=== PATIENT | female | born 1960 | race Asian ===

== ENCOUNTER 2023-10-05 19:06 | Observation (INO) | payer BC, MEDICAID ==
[2023-10-05 20:10] LABS: BASOPHILS % (AUTO) 0.2 %; HCT - HEMATOCRIT 42.9 % (37.0-47.0); HGB - HEMOGLOBIN 14.2 g/dL (12.0-16.0); LYMPHOCYTES # (AUTO) 0.7 10^3/uL (1.5-3.5); LYMPHOCYTES % (AUTO) 6.4 %; MEAN CORPUSCULAR HEMOGLOBIN 26.5 pg (27.0-31.0); MEAN CORPUSCULAR HGB CONC 33.1 g/dL (32.0-36.0); MEAN CORPUSCULAR VOLUME 80.2 fL (81.0-99.0); MEAN PLATELET VOLUME 9.4 fL (7.9-10.8); MONOCYTES # (AUTO) 0.2 10^3/uL (0.0-1.0); MONOCYTES % (AUTO) 1.7 %; NEUTROPHILS # (AUTO) 10.1 10^3/uL (1.5-6.6); NEUTROPHILS % (AUTO) 91.4 %; PLT - PLATELET COUNT 392 10^3/uL (130-450); RED BLOOD COUNT 5.35 10^6/uL (4.20-5.40); RED CELL DISTRIBUTION WIDTH 12.5 % (12.0-15.0); WHITE BLOOD COUNT 11.1 x10^3/uL (4.8-10.8)
[2023-10-05 20:15] LABS: ALBUMIN/GLOBULIN RATIO 1.5 (1.0-2.2); BILIRUBIN,TOTAL 0.7 mg/dL (0.2-1.0); CALCIUM 10.4 mg/dL (8.5-10.3); CREATININE 0.6 mg/dL (0.6-1.3); POTASSIUM 3.9 mmol/L (3.5-4.5); TOTAL PROTEIN 8.4 g/dL (6.4-8.9)
[2023-10-05 20:29] LABS: BILIRUBIN,URINE NEGATIVE (NEGATIVE); GLUCOSE, URINE (UA) 500 mg/dL (NEGATIVE); KETONES,URINE (UA) >=80 mg/dL (NEGATIVE); LEUKOCYTE ESTERASE, URINE TRACE (NEGATIVE); NITRITE,URINE NEGATIVE (NEGATIVE); OCCULT BLOOD,URINE NEGATIVE (NEGATIVE); PH,URINE 5.5 PH (5.0-7.5); PROTEIN,URINE NEGATIVE (NEGATIVE); UROBILINOGEN,URINE 0.2 (NORMAL) E.U./dL (NORMAL)
--- NOTE | 2023-10-05 20:29 | ED Physician Documentation ---
PD HPI ABD PAIN - Stated complaint Stated Complaint: N/V/ABD PX - Chief complaint Chief Complaint: Abd Pain - History obtained from History obtained from: Patient, Family - History of Present Illness Timing - details: Constant Pain level max: 8 Pain level now: 8 Quality: Aching, Pain Location: Epigastric, LUQ Radiation: Left flank, Right flank Improved by: Other (nothing) Worsened by: Eating Associated symptoms: No: Nausea, Vomiting, Hematemesis, Diarrhea, Constipation, Melena, Hematochezia, Dysuria, Hematuria, Chest pain, Dizzy, Near syncope / syncope, Loss of appetite Recently seen: Not recently seen - Additional information Additional information: 62-year-old female with epigastric abdominal pain that started around 8 AM this morning after eating a sweet potato and drinking coffee. She states that the pain has been constant throughout the day." Radiates to the bilateral flank. Feels like a crampy and stabbing pain. No vomiting. No diarrhea or constipation. No blood in the stool. No urinary symptoms. Denies any medications at home. States that she has a remote history of tuberculosis in 2011 when she was in the [facility]. Review of Systems Constitutional: denies: Fever, Chills Respiratory: denies: Cough GI: denies: Vomiting, Diarrhea Skin: denies: Rash Musculoskeletal: denies: Neck pain, Back pain Neurologic: denies: Headache PD PAST MEDICAL HISTORY - Past Medical History Past Medical History: No - Present Medications Home Medications: Ambulatory Orders Medication Instructions Recorded Confirmed No Known Home Medications 10/05/23 10/05/23 - Allergies Allergies/Adverse Reactions: Allergies Allergy/AdvReac Type Severity Reaction Status Date / Time No Known Drug Allergies Allergy Verified 10/05/23 19:25 - Living Situation Living Situation: reports: With family Living Arrangement: reports: At home - Social History Does the pt have substance abuse?: No PD ED PE NORMAL - Vitals Vital signs reviewed: Yes - General General: Alert and oriented X 3, No acute distress - HEENT HEENT: PERRL, Moist mucous membranes - Neck Neck: Supple, no meningeal sign - Cardiac Cardiac: RRR, Strong equal pulses - Respiratory Respiratory: No respiratory distress, Clear bilaterally - Abdomen Abdomen: Soft, Non distended, Other (Tender palpation right upper quadrant. Positive Cobb sign) - Back Back: No CVA TTP, No spinal TTP - Derm Derm: Warm and dry - Extremities Extremities: No edema - Neuro Neuro: Alert and oriented X 3 - Psych Psych: Normal mood, Normal affect Results - Vitals Vitals: Vital Signs - 24 hr 10/05/23 10/05/23 10/05/23 19:19 20:30 21:30 Temperature 36.5 C Heart Rate 73 Respiratory 16 Rate Blood Pressure 158/74 H 167/88 H 173/93 H O2 Saturation 100 99 100 10/05/23 23:00 Temperature 36.5 C Heart Rate 74 Respiratory 18 Rate Blood Pressure 166/74 H O2 Saturation 99 Oxygen O2 Source Room air - Labs Labs: Laboratory Tests 10/05/23 10/05/23 10/05/23 19:26 19:51 19:51 WBC 11.1 H RBC 5.35 Hgb 14.2 Hct 42.9 MCV 80.2 L MCH 26.5 L MCHC 33.1 RDW 12.5 Plt Count 392 MPV 9.4 Neut # (Auto) 10.1 H Lymph # (Auto) 0.7 L Lares # (Auto) 0.2 Eos # (Auto) 0.0 Baso # (Auto) 0.0 Absolute Nucleated RBC 0.00 Nucleated RBC % 0.0 Sodium 133 L Potassium 3.9 Chloride 97 L Carbon Dioxide 26 Anion Gap 10.0 BUN 10 Creatinine 0.6 Estimated GFR (MDRD) 101 Glucose 295 H Calcium 10.4 H Total Bilirubin 0.7 AST 17 ALT 21 Alkaline Phosphatase 94 Total Protein 8.4 Albumin 5.0 Globulin 3.4 Albumin/Globulin Ratio 1.5 Lipase 21 Urine Color YELLOW Urine Clarity HAZY Urine pH 5.5 Ur Specific [place] 1.025 Urine Protein NEGATIVE Urine Glucose (UA) 500 H Urine Ketones >=80 H Urine Occult Blood NEGATIVE Urine Nitrite NEGATIVE Urine Bilirubin NEGATIVE Urine Urobilinogen 0.2 (NORMAL) Ur Leukocyte Esterase TRACE H Urine RBC 0-5 Urine WBC 6-10 H Ur Squamous Epith Cells FEW Squamous Urine Bacteria Moderate H Ur Microscopic Review INDICATED Urine Culture Comments INDICATED - Rads (name of study) CT abdomen pelvis Relevant Findings:: Final report received, See rad report Right upper quadrant ultrasound Relevant Findings:: Final report received, See rad report PD Medical Decision Making - ED course Complexity details: reviewed results, re-evaluated patient, considered differential, d/w patient, d/w small business consultant ED course: 62-year-old female with what appears to be a very large stone lodged in her gallbladder neck. Appears to have a hydropic gallbladder. Thickened gallbladder wall but no pericholecystic fluid. Mild elevation of her white blood cell count. Given Dilaudid for pain, pain controlled, discussed the case with general surgery, Dr. Schmitt, given the hydropic gallbladder with the stone lodged in place and not mobile, will plan for OR in a.m. Started on Zosyn. Patient is signed out to the oncoming emergency department physician for care overnight with plan for or in a.m. This document was made in part using voice recognition software. While efforts are made to proofread this document, sound alike and grammatical errors may occur. Departure - Departure Disposition: ED Transfer to [facility] Clinical Impression: Acute cholecystitis Condition: Stable Forms: PCP List
[2023-10-05 20:31] LABS: CLARITY,URINE HAZY (CLEAR)
[2023-10-05] MEDS ORDERED: iohexoL-300 100 ML VIAL ONE (20:32)
[2023-10-05] MEDS: HYDROmorphone 1 MG/ML CARPUJECT IVP STA (20:34)
[2023-10-05 20:42] LABS: BACTERIA,URINE Moderate /HPF (None Seen); RBC,URINE 0-5 /HPF (0-5); SQUAMOUS EPITHELIAL CELL,UR FEW Squamous (<= Few)
[2023-10-05] MEDS: iohexoL-300 100 ML VIAL IVP ONE (20:50)
[2023-10-05] MEDS: FAMOTIDINE 20 MG TABLET PO STA (21:22)
[2023-10-05] MEDS: LIDOCAINE VISCOUS 2% 15 ML UDC MM STA (21:22)
[2023-10-05] MEDS: SUCRALFATE 1 GM/10 ML UDC PO STA (21:22)
[2023-10-05] MEDS: MAG HYDROX/AL HYDROX/SIMETH 30 ML UDC PO STA (21:22)
--- NOTE | 2023-10-05 21:38 | CT Report ---
PROCEDURE: Abdomen/Pelvis W INDICATIONS: epigastric abd pain CONTRAST: 100ml [id number] TECHNIQUE: After the administration of intravenous contrast, a CT scan of the abdomen and pelvis was performed. Images were recorded and evaluated at appropriate window settings. Reformats: coronal and sagittal. F or radiation dose reduction, the following was used: automated exposure control, adjustment of mA and /or kV according to patient size. COMPARISON: None. FINDINGS: Image quality: Diagnostic. Lower chest: Unremarkable. Liver: No solid mass. Gallbladder: A large calculus is seen in the gallbladder neck. Possible mild gallbladder wall thicken ing. No surrounding stranding is seen. Biliary tree: No intrahepatic or extrahepatic dilation, accounting for age. Spleen: No splenomegaly. Pancreas: No pancreatic ductal dilation. Adrenals: No adrenal nodule. Kidneys and ureters: No hydronephrosis. No renal cystic lesion which requires follow up. No solid mas s. Stomach, bowel and peritoneum: No gastric or small bowel dilation. No abnormal wall thickening. No pa thologic free fluid. Lymph nodes: No central or retroperitoneal adenopathy. Vessels: No infrarenal aortic aneurysm. Patent portal vein. PELVIS Reproductive organs: Unremarkable. Bladder: No abnormal wall thickening, accounting for underdistention. Pelvic lymph nodes: No pelvic adenopathy by size criteria. Bones: No aggressive osseous abnormality. Other: No significant ventral or inguinal hernia. IMPRESSION: Large gallstone in the gallbladder neck with suspected mild gallbladder wall thickening. Recommend co rrelation for acute cholecystitis. Right upper quadrant ultrasound could be performed for further sapna luation. Reviewed by: Uziel Welch MD on 10/05/2023 9:37 PM PDT Approved by: Uziel Welch MD on 10/05/2023 9:37 PM PDT Station ID: [id number]
[2023-10-05] MEDS: PIPERACILLIN/TAZOBACTAM 3.375 GM in SODIUM CHLORIDE 0.9% MINIBAG 100 ML IV STA (22:08)
--- NOTE | 2023-10-05 22:59 | Ultrasound Report ---
PROCEDURE: Abdomen Limited INDICATIONS: RUQ abd pain TECHNIQUE: Real-time focused scanning was performed of the abdomen, with image documentation. COMPARISONS: CT abdomen/pelvis 10/05/2023. FINDINGS: Liver: Liver is normal in size and diffusely increased in echogenicity. Gallbladder: Gallbladder contains gallstones and sludge. Gallbladder wall measures 4 mm in thickness. No pericholecystic fluid. Sonographic Cobb sign is negative. Biliary ducts: Intrahepatic bile ducts are non-dilated. Extrahepatic bile duct caliber measures 6 m m. Normal is 6-7 mm or less in diameter, or 10 mm or less post-cholecystectomy. Pancreas: Visualized portions of the pancreas are sonographically normal. Right kidney: Normal in size and echotexture. Right kidney measures 11.1 cm long. No hydronephrosis or nephrolithiasis. No solid masses. No complex renal cystic lesions which require follow-up. IVC: Intrahepatic inferior vena cava is patent. Miscellaneous: No free abdominal fluid. IMPRESSION: Cholelithiasis and gallbladder wall thickening. No pericholecystic fluid. Sonographic Cobb sign is negative. Findings are equivocal for acute cholecystitis and correlation with clinical findings and l aboratory values is recommended. Nuclear medicine HIDA scan could be performed for further evaluation if indicated clinically. Reviewed by: Uziel Welch MD on 10/05/2023 10:57 PM PDT Approved by: Uziel Welch MD on 10/05/2023 10:57 PM PDT Station ID: [id number]
[2023-10-05] MEDS: SODIUM CHLORIDE 0.9% 1,000 ML IV STA (23:27)
[2023-10-06] MEDS: HYDROmorphone 1 MG/ML CARPUJECT IVP STA ×2 (00:16→05:48)
[2023-10-06] MEDS: PIPERACILLIN/TAZOBACTAM 3.375 GM in SODIUM CHLORIDE 0.9% MINIBAG 100 ML IV STA (04:29)
[2023-10-06 06:08] LABS: BASOPHILS % (AUTO) 0.2 %; HCT - HEMATOCRIT 38.3 % (37.0-47.0); HGB - HEMOGLOBIN 13.2 g/dL (12.0-16.0); LYMPHOCYTES # (AUTO) 0.8 10^3/uL (1.5-3.5); LYMPHOCYTES % (AUTO) 6.3 %; MEAN CORPUSCULAR HEMOGLOBIN 27.5 pg (27.0-31.0); MEAN CORPUSCULAR HGB CONC 34.5 g/dL (32.0-36.0); MEAN CORPUSCULAR VOLUME 79.8 fL (81.0-99.0); MEAN PLATELET VOLUME 9.5 fL (7.9-10.8); MONOCYTES # (AUTO) 0.8 10^3/uL (0.0-1.0); MONOCYTES % (AUTO) 6.3 %; NEUTROPHILS # (AUTO) 10.7 10^3/uL (1.5-6.6); PLT - PLATELET COUNT 333 10^3/uL (130-450); RED CELL DISTRIBUTION WIDTH 12.5 % (12.0-15.0); WHITE BLOOD COUNT 12.3 x10^3/uL (4.8-10.8)
[2023-10-06 06:23] LABS: ALBUMIN/GLOBULIN RATIO 1.3 (1.0-2.2); BILIRUBIN,TOTAL 0.7 mg/dL (0.2-1.0); CREATININE 0.6 mg/dL (0.6-1.3); POTASSIUM 3.7 mmol/L (3.5-4.5)
--- NOTE | 2023-10-06 08:39 | HISTORY & PHYSICAL EXAMINATION ---
HPI - Admitted From Admitted from: ED - History Obtained From History obtained from: Patient, Family Exam limitations: Language barrier (Tagalog speaking, daughter augmented history and discussion of consent via video call) - History of Present Illness HPI Comment/Other: 62yoF with 24hrs of epigastric pain associated with nausea and 1 episode of emesis yesterday. Denies prior similar pain; denies f/c, denies diarrhea. Denies CP/SOB. PMH/PSH - Past Medical History Cardiovascular: positive: None Respiratory: positive: None, Tuberculosis (2011) Endocrine/Autoimmune: positive: Other (glucose 250 in ED, daughter indicates possible dx of DM in the past but not taking medication.) GI: positive: None RUM PROCESSING OPERATOR: positive: None : positive: None HEENT: positive: None Psych: positive: None Musculoskeletal: positive: None Derm: positive: None MRSA Hx?: No Other Past Medical History: pre diabetic - Past Surgical History /RUM PROCESSING OPERATOR: positive: section (x2, vertical midline incision) Social & Family Hx - Living Situation Living Arrangement: At home Living Situation: With family (daughter and grandchildren) - Social History Does the pt smoke?: No Smoking Status: Never smoker Does the pt drink ETOH?: No Does the pt have substance abuse?: No - POLST Patient has POLST: No Meds/Allgy - Home Medications Home Medications: Ambulatory Orders Medication Instructions Recorded Confirmed No Known Home Medications 10/05/23 10/05/23 - Allergies Allergies/Adverse Reactions: Allergies Allergy/AdvReac Type Severity Reaction Status Date / Time No Known Drug Allergies Allergy Verified 10/05/23 19:25 Review of Systems - Gastrointestinal Gastrointestinal: reports: Abdominal pain, Nausea, Vomiting Exam - Vital Signs Reviewed Vital Signs: Yes Vital Signs: Vital Signs x48h Temp Pulse Resp BP Pulse Ox 10/06/23 07:00 68 18 132/84 H 100 10/06/23 05:00 36.2 C L 78 16 153/68 H 99 10/06/23 03:00 74 16 157/89 H 99 10/06/23 01:00 36.4 C L 86 16 160/83 H 99 - Physical Exam General Appearance: positive: No acute distress, Alert Eyes Bilateral: positive: Normal inspection, PERRL ENT: positive: ENT inspection nml, Pharynx nml, No signs of dehydration Neck: positive: Nml inspection, Thyroid nml, No JVD, Trachea midline Respiratory: positive: Chest non-tender, No respiratory distress, Breath sounds nml Cardiovascular: positive: Regular rate & rhythm, No murmur, No gallop Peripheral Pulses: positive: 2+ Abdomen: positive: No distention, Tenderness (RUQ ttp, negative murpheys sign). negative: Guarding, Rebound Back: positive: Nml inspection Skin: positive: Color nml, No rash, Warm, Dry Extremities: positive: Non-tender, Full ROM, Nml appearance Neurologic/Psychiatric: positive: Oriented x3, Mood/affect nml Results - Lab Results Lab results reviewed: Yes Fish Bones: 10/06/23 05:54 10/06/23 05:54 Other Lab Results: Lab Results x24hrs 10/06/23 10/06/23 10/05/23 Range/Units 05:54 05:54 19:51 WBC 12.3 H (4.8-10.8) x10^3/uL RBC 4.80 (4.20-5.40) 10^6/uL Hgb 13.2 (12.0-16.0) g/dL Hct 38.3 (37.0-47.0) % MCV 79.8 L (81.0-99.0) fL MCH 27.5 (27.0-31.0) pg MCHC 34.5 (32.0-36.0) g/dL RDW 12.5 (12.0-15.0) % Plt Count 333 (130-450) 10^3/uL MPV 9.5 (7.9-10.8) fL Neut # (Auto) 10.7 H (1.5-6.6) 10^3/uL Lymph # (Auto) 0.8 L (1.5-3.5) 10^3/uL Webb # (Auto) 0.8 (0.0-1.0) 10^3/uL Eos # (Auto) 0.0 (0.0-0.7) 10^3/uL Baso # (Auto) 0.0 (0.0-0.1) 10^3/uL Absolute Nucleated RBC 0.00 x10^3/uL Nucleated RBC % 0.0 /100WBC Sodium 135 133 L (135-145) mmol/L Potassium 3.7 3.9 (3.5-4.5) mmol/L Chloride 102 97 L (101-111) mmol/L Carbon Dioxide 24 26 (21-32) mmol/L Anion Gap 9.0 10.0 (6-13) BUN 9 10 (6-20) mg/dL Creatinine 0.6 0.6 (0.6-1.3) mg/dL Estimated GFR (MDRD) 101 101 (>89) Glucose 240 H 295 H (74-104) mg/dL Calcium 9.0 10.4 H (8.5-10.3) mg/dL Total Bilirubin 0.7 0.7 (0.2-1.0) mg/dL AST 15 17 (10-42) IU/L ALT 17 21 (10-60) IU/L Alkaline Phosphatase 70 94 (42-121) IU/L Total Protein 7.0 8.4 (6.4-8.9) g/dL Albumin 4.0 5.0 (3.2-5.5) g/dL Globulin 3.0 3.4 (2.1-4.2) g/dL Albumin/Globulin Ratio 1.3 1.5 (1.0-2.2) Lipase 10 L 21 (11-82) U/L Urine Color Urine Clarity (CLEAR) Urine pH (5.0-7.5) PH Ur Specific [place] (1.002-1.030) Urine Protein (NEGATIVE) mg/dL Urine Glucose (UA) (NEGATIVE) mg/dL Urine Ketones (NEGATIVE) mg/dL Urine Occult Blood (NEGATIVE) Urine Nitrite (NEGATIVE) Urine Bilirubin (NEGATIVE) Urine Urobilinogen (NORMAL) E.U./dL Ur Leukocyte Esterase (NEGATIVE) Urine RBC (0-5) /HPF Urine WBC (0-5) /HPF Ur Squamous Epith Cells (<= Few) Urine Bacteria (None Seen) /HPF Ur Microscopic Review Urine Culture Comments 10/05/23 10/05/23 Range/Units 19:51 19:26 WBC 11.1 H (4.8-10.8) x10^3/uL RBC 5.35 (4.20-5.40) 10^6/uL Hgb 14.2 (12.0-16.0) g/dL Hct 42.9 (37.0-47.0) % MCV 80.2 L (81.0-99.0) fL MCH 26.5 L (27.0-31.0) pg MCHC 33.1 (32.0-36.0) g/dL RDW 12.5 (12.0-15.0) % Plt Count 392 (130-450) 10^3/uL MPV 9.4 (7.9-10.8) fL Neut # (Auto) 10.1 H (1.5-6.6) 10^3/uL Lymph # (Auto) 0.7 L (1.5-3.5) 10^3/uL Webb # (Auto) 0.2 (0.0-1.0) 10^3/uL Eos # (Auto) 0.0 (0.0-0.7) 10^3/uL Baso # (Auto) 0.0 (0.0-0.1) 10^3/uL Absolute Nucleated RBC 0.00 x10^3/uL Nucleated RBC % 0.0 /100WBC Sodium (135-145) mmol/L Potassium (3.5-4.5) mmol/L Chloride (101-111) mmol/L Carbon Dioxide (21-32) mmol/L Anion Gap (6-13) BUN (6-20) mg/dL Creatinine (0.6-1.3) mg/dL Estimated GFR (MDRD) (>89) Glucose (74-104) mg/dL Calcium (8.5-10.3) mg/dL Total Bilirubin (0.2-1.0) mg/dL AST (10-42) IU/L ALT (10-60) IU/L Alkaline Phosphatase (42-121) IU/L Total Protein (6.4-8.9) g/dL Albumin (3.2-5.5) g/dL Globulin (2.1-4.2) g/dL Albumin/Globulin Ratio (1.0-2.2) Lipase (11-82) U/L Urine Color YELLOW Urine Clarity HAZY (CLEAR) Urine pH 5.5 (5.0-7.5) PH Ur Specific [place] 1.025 (1.002-1.030) Urine Protein NEGATIVE (NEGATIVE) mg/dL Urine Glucose (UA) 500 H (NEGATIVE) mg/dL Urine Ketones >=80 H (NEGATIVE) mg/dL Urine Occult Blood NEGATIVE (NEGATIVE) Urine Nitrite NEGATIVE (NEGATIVE) Urine Bilirubin NEGATIVE (NEGATIVE) Urine Urobilinogen 0.2 (NORMAL) (NORMAL) E.U./dL Ur Leukocyte Esterase TRACE H (NEGATIVE) Urine RBC 0-5 (0-5) /HPF Urine WBC 6-10 H (0-5) /HPF Ur Squamous Epith Cells FEW Squamous (<= Few) Urine Bacteria Moderate H (None Seen) /HPF Ur Microscopic Review INDICATED Urine Culture Comments INDICATED - Diagnostic Imaging Results Diagnostic Imaging Results: positive: Read contemporaneously (CT and RUQUS demonstrating large (>2cm) gallstone at neck of gallbladder, thickened gallbladder wall without pericholecystic fluid, normal CBD diameter, negative sonographic murpheys sign) Impression/Plan - Problem List Problem List: 62yoF with intractable biliary colic vs acute cholecystitis. 24hrs of epigastric pain with RUQ ttp but negative joe's sign. WBC elevated 11 -> 12.3 however LFTs and lipase remain normal on two checks overnight in ED. RUQUS with thickened gallbladder wall on hydroptic appearing gallbladder with large (>2cm) stone at gallbladder neck. Pain has improved but not resolved in ED with zosyn and pain medication. Discussed findings and diagnosis with patient as well as her daughter (via video call). Discussed recommendation for surgical intervention as pain has not abated and risk of persistence/worsening at home with return to the ED in potentially worse clinical condition. Discussed risk of surgery to include pain, bleeding, infection, bile leak, bile duct injury, open surgery, need for further procedures. All questions were answered and they would like to proceed with surgery. - zosyn given in ED - to OR this AM for laparoscopic cholecystectomy, IOC not planned - plan for same day surgery discharge this afternoon, patient lives with daughter Johanny ([phone]) Cortney Schmitt DO, FACS General Surgeon
[2023-10-06] MEDS ORDERED: BUPIVACAINE 0.25% PF 30 ML VIAL ONE (08:45)
[2023-10-06] MEDS ORDERED: LIDOCAINE 1%-EPI 1:100000 20 ML MDV ONE (08:45)
[2023-10-06] MEDS ORDERED: fentaNYL 100 MCG/2 ML VIAL ONE ×2 (09:14→10:52)
[2023-10-06] MEDS ORDERED: MIDAZOLAM 2 MG/2 ML VIAL ONE (09:14)
[2023-10-06] MEDS ORDERED: ROCURONIUM 50 MG/5 ML VIAL ONE (09:15)
[2023-10-06] MEDS ORDERED: PROPOFOL 200 MG/20 ML VIAL IVP ONE ×2 (09:15→12:21)
[2023-10-06] MEDS ORDERED: LIDOCAINE-PF 2% 10 ML AMP SUBQ ONE (09:15)
--- NOTE | 2023-10-06 09:18 | ANESTHESIA ---
Pre-Anesthesia VS, & Labs - Diagnosis CHOLECYSTITIS - Procedure LAPAROSCOPIC CHOLECYSTECTOMY Vital Signs: Temp Pulse Resp BP Pulse Ox O2 Flow Rate 36.2 C L 68 18 132/84 H 100 10/06/23 05:00 10/06/23 07:00 10/06/23 07:00 10/06/23 07:00 10/06/23 07:00 Height: 5 ft 3 in Weight (kg): 54.431 kg Body Mass Index: 21.2 BMI Classification: Normal - NPO >8 hours - Is Patient ?: No - Lab Results Current Lab Results: Laboratory Tests 10/06/23 05:54: Sodium 135, Potassium 3.7, Chloride 102, Carbon Dioxide 24, Anion Gap 9.0, BUN 9, Creatinine 0.6, Estimated GFR (MDRD) 101, Glucose 240 H, Calcium 9.0, Total Bilirubin 0.7, AST 15, ALT 17, Alkaline Phosphatase 70, Total Protein 7.0, Albumin 4.0, Globulin 3.0, Albumin/Globulin Ratio 1.3, Lipase 10 L 10/06/23 05:54: WBC 12.3 H, RBC 4.80, Hgb 13.2, Hct 38.3, MCV 79.8 L, MCH 27.5, MCHC 34.5, RDW 12.5, Plt Count 333, MPV 9.5, Neut # (Auto) 10.7 H, Lymph # (Auto) 0.8 L, Craig # (Auto) 0.8, Eos # (Auto) 0.0, Baso # (Auto) 0.0, Absolute Nucleated RBC 0.00, Nucleated RBC % 0.0 10/05/23 19:51: Sodium 133 L, Potassium 3.9, Chloride 97 L, Carbon Dioxide 26, Anion Gap 10.0, BUN 10, Creatinine 0.6, Estimated GFR (MDRD) 101, Glucose 295 H, Calcium 10.4 H, Total Bilirubin 0.7, AST 17, ALT 21, Alkaline Phosphatase 94, Total Protein 8.4, Albumin 5.0, Globulin 3.4, Albumin/Globulin Ratio 1.5, Lipase 21 10/05/23 19:51: WBC 11.1 H, RBC 5.35, Hgb 14.2, Hct 42.9, MCV 80.2 L, MCH 26.5 L , MCHC 33.1, RDW 12.5, Plt Count 392, MPV 9.4, Neut # (Auto) 10.1 H, Lymph # (Auto) 0.7 L, Craig # (Auto) 0.2, Eos # (Auto) 0.0, Baso # (Auto) 0.0, Absolute Nucleated RBC 0.00, Nucleated RBC % 0.0 Fish Bones: 10/06/23 05:54 10/06/23 05:54 Home Medications and Allergies Home Medications: Ambulatory Orders No Known Home Medications 10/05/23 No Known Home Medications 10/05/23 Allergies/Adverse Reactions: Allergies Allergy/AdvReac Type Severity Reaction Status Date / Time No Known Drug Allergies Allergy Verified 10/05/23 19:25 Anes History & Medical History - Anesthetic History Anesthesia Complications: reports: No previous complications Family history of Anesthesia Complications: Denies Family history of Malignant Hyperthermia: Denies - Medical History Cardiovascular: reports: None Pulmonary: reports: None, Tuberculosis (2011) Gastrointestinal: reports: None Urinary: reports: None Neuro: reports: None Musculoskeletal: reports: None Endocrine/Autoimmune: reports: Other (glucose 250 in ED, daughter indicates possible dx of DM in the past but not taking medication.) Blood Disorders: reports: None Skin: reports: None Smoking Status: Never smoker Psychosocial: reports: No issues indicated History of Cancer?: No Other Past Medical History: pre diabetic - Surgical History Gynecologic: reports: section (x2, vertical midline incision) Results - EKG Results EKG Comparison: Reviewed EKG, Normal EKG Exam General: Alert, Oriented x3, Cooperative, No acute distress Dental: Other (PARTIALS REMOVED BY RN) Mouth Openin Fingerbreadth Neck Mobility: Normal Mallampati classification: III Thyromental Distance: 4-6 cm Mental/Cognitive Status: Alert/Oriented X3, Normal for patient Cognitive Status: Within normal limits Other Exam Comments:: RN BEDSIDE TO ASSIST WITH TRANSLATION; PT CAN SPEAK AND COMPREHEND YAKUT WITH OCCASIONAL ASSISTANCE FROM TEAROOM HOST/HOSTESS BEDSIDE Plan Anesthesia Type: General Consent for Procedure(s) Verified and Reviewed: Yes Code Status: Attempt Resuscitation ASA classification: 2-Mild systemic disease Is this case an emergency?: No
[2023-10-06] MEDS ORDERED: ceFAZolin 1 GM VIAL ONE (09:28)
[2023-10-06] MEDS ORDERED: DEXAMETHASONE 4 MG/ML VIAL ONE (09:37)
[2023-10-06] MEDS ORDERED: ONDANSETRON 4 MG/2 ML VIAL ONE (09:37)
[2023-10-06] MEDS ORDERED: ACETAMINOPHEN 1,000 MG/100 ML 1,000 MG/100 ML BAG IV ONE (09:58)
[2023-10-06] MEDS ORDERED: LACTATED RINGERS 1,000 ML IV SCH (10:00)
[2023-10-06] MEDS ORDERED: ATROPINE ABBOJECT 1 MG/10 ML SYRINGE IVP PRN (10:00)
[2023-10-06] MEDS ORDERED: fentaNYL 100 MCG/2 ML VIAL IVP PRN (10:00)
[2023-10-06] MEDS ORDERED: NALOXONE 0.4 MG/ML VIAL IVP PRN (10:00)
[2023-10-06] MEDS ORDERED: HYDROmorphone 0.5 MG/0.5 ML SYRINGE IVP PRN (10:00)
[2023-10-06] MEDS ORDERED: ePHEDrine 50 MG/ML VIAL IVP PRN (10:00)
[2023-10-06] MEDS ORDERED: ONDANSETRON 4 MG/2 ML VIAL IVP PRN (10:00)
[2023-10-06] MEDS: LIDOCAINE 1%-EPI 1:100000 50 ML VIAL SUBQ ONE ×2 (10:55)
[2023-10-06] MEDS: BUPIVACAINE 0.25% PF 30 ML VIAL SUBQ ONE ×2 (10:56)
[2023-10-06] MEDS ORDERED: SUGAMMADEX 200 MG/2 ML VIAL IVP ONE (11:57)
[2023-10-06] MEDS ORDERED: HYDROmorphone 1 MG/ML CARPUJECT ONE (12:07)
[2023-10-06] MEDS: LACTATED RINGERS 1,000 ML IV ONE (12:27)
--- NOTE | 2023-10-06 12:45 | OPERATIVE REPORT ---
Operative Report - General Procedure Date: 10/06/23 Planned Procedure: laparoscopic cholecystectomy Pre-Op Diagnosis: intractable biliary colic Procedure Performed: laparoscopic cholecystectomy Post Op Diagnosis: acute on chronic calculous cholecystitis; gallbladder hydrops - Procedure Note Primary Surgeon: Cortney Schmitt DO Anesthesia Provider: Che Grande Anesthesia Technique: General ET tube, Local Pathology: gallbladder and contents Estimated Blood Loss (mL): 50 Drain/Tube Type: Rommel Humphreys flat drain Indications: 24hrs of epigastric pain, unrelenting with pain meds and abx. WBC 12, dilated gallbladder with thickened wall on imaging. Findings: hydropic gallbladder, densely fibrotic gallbladder wall - difficult dissection. 3cm stone lodged at neck of gallbladder. Oozing during case, PREETI drain placed at end of case to monitor for postoperative bleed. Complications: none - Other Other Information/Narrative: Patient was brought to the operating room under universal protocol. She was placed supine on the operating room table. General anesthesia was induced by the REVENUE ENFORCEMENT AGENT. She was positioned with the left arm tucked. No Back was placed. A final timeout was performed with all members of the team in agreement. The abdomen was prepped and draped in standard sterile fashion. The abdomen was entered via Saenz technique at the supraumbilical position. Local anesthetic was injected. the skin was incised sharply. the subcutaneous tissues were dissected bluntly down to the level of the fascia. a Marlo clamp was used to elevate the umbilicus and the supraumbilical fascia was incised vertically sharply. The peritoneal cavity was entered bluntly with a Elodia forcep a blunt trocar was placed. The abdomen was insufflated to 15 mmHg with CO2 gas which the patient tolerated well. The laparoscope was introduced and under direct visualization 3 additional 5 mm trocars were placed in the following positions: Subxiphoid right upper quadrant at the subcostal margin along the midclavicular line and far lateral right upper quadrant at the subcostal margin. Patient was positioned with the head up in the right side elevated and graspers were introduced into the abdomen. The gallbladder was seen to be tensely distended and was aspirated with a laparoscopic needle revealing 75 cc of white hydropic fluid. After this the fundus was grasped and elevated cephalad over the liver edge. The infundibulum was grasped and retracted laterally. Hook electrocautery was used to incise the peritoneum over the medial and lateral edge of the gallbladder. The gallbladder wall was noted to be extraordinarily thick as well as extraordinarily densely fibrotic, the dissection through the peritoneum was difficult. Bleeding was encountered during the dissection which was controlled with electrocautery as well as small clips. Ultimately 2 structures were seen entering the lower third of the gallbladder with the liver edge seen between these 2 structures representing the critical view of safety. Both the cystic duct and the cystic artery were triply clipped and divided sharply between the clips. The gallbladder was taken off of the liver bed using hook electrocautery. Bleeding on the hepatic fossa was controlled with hook electrocautery. A piece of Surgicel was used to aid in hemostasis that was removed from the abdomen after hemostasis was achieved. The gallbladder was placed into an Endo Catch retrieval bag and removed through the umbilical port. Hemostasis was again ensured and clips were noted to be within proper position. The abdomen was irrigated and blood was noted in the right upper quadrant left upper quadrant and pelvis presumably resulting from the bleeding during the difficult dissection. No additional bleeding from the hepatic fossa was observed during irrigation at the conclusion of the case. A 10 mm flat PREETI drain was placed coming out through the far right lateral trocar incision to monitor for postoperative bleeding the RPEETI drain was secured with a 2-0 nylon stitch. The trocars were removed. the patient was positioned flat. The fascia at the umbilical incision was closed with an 0 Vicryl [id number] suture and the umbilical wound was irrigated with clean normal saline. The remainder of the local anesthetic was injected at all incision sites. The skin at all incisions was closed with a subcuticular 4-0 Monocryl suture followed by dressing application. The patient was then awoken from general anesthesia having tolerated the procedure well remained hemodynamically normal throughout the entirety of the case. She was transferred to the PACU in good condition. All sponge and needle counts were correct.
[2023-10-06 13:14] LABS: BASOPHILS % (AUTO) 0.2 %; HCT - HEMATOCRIT 39.8 % (37.0-47.0); LYMPHOCYTES # (AUTO) 0.8 10^3/uL (1.5-3.5); LYMPHOCYTES % (AUTO) 4.8 %; MEAN CORPUSCULAR HEMOGLOBIN 27.1 pg (27.0-31.0); MEAN CORPUSCULAR HGB CONC 32.7 g/dL (32.0-36.0); MEAN CORPUSCULAR VOLUME 83.1 fL (81.0-99.0); MEAN PLATELET VOLUME 9.6 fL (7.9-10.8); MONOCYTES # (AUTO) 0.9 10^3/uL (0.0-1.0); MONOCYTES % (AUTO) 5.2 %; NEUTROPHILS # (AUTO) 15.3 10^3/uL (1.5-6.6); NEUTROPHILS % (AUTO) 89.3 %; PLT - PLATELET COUNT 345 10^3/uL (130-450); RED BLOOD COUNT 4.79 10^6/uL (4.20-5.40); RED CELL DISTRIBUTION WIDTH 12.9 % (12.0-15.0); WHITE BLOOD COUNT 17.1 x10^3/uL (4.8-10.8)
[2023-10-06 13:21] LABS: INR 1.1 (0.8-1.2); PT - PROTHROMBIN TIME 12.1 secs (9.9-12.6)
[2023-10-06 13:28] LABS: ALBUMIN 4.3 g/dL (3.2-5.5); ALBUMIN/GLOBULIN RATIO 1.3 (1.0-2.2); BILIRUBIN,TOTAL 0.7 mg/dL (0.2-1.0); CREATININE 0.6 mg/dL (0.6-1.3); POTASSIUM 3.9 mmol/L (3.5-4.5); TOTAL PROTEIN 7.5 g/dL (6.4-8.9)
[2023-10-06 13:43] LABS: ESTIMATED AVERAGE GLUCOSE 252 mg/dL (70-100); HEMOGLOBIN A1c% 10.4 % (4.27-6.07)
--- NOTE | 2023-10-06 13:43 | ANESTHESIA POST OP EVALUATION ---
Anesthesia Post Eval - Post Anesthesia Eval Vitals: Last Vital Signs Temp 36.3 C L 10/06/23 13:25 Pulse 74 10/06/23 13:35 Resp 15 10/06/23 13:35 BP 127/73 10/06/23 13:35 Pulse Ox 95 10/06/23 13:35 O2 Flow Rate CV Function Including HR & BP: Stable Pain Control: Satisfactory Nausea & Vomiting: Negative Mental Status: Baseline Respiratory Status: Airway Patent Hydration Status: Satisfactory Anesthesia Complications: None
[2023-10-06] MEDS ORDERED: ACETAMINOPHEN 1,000 MG/100 ML 1,000 MG/100 ML BAG IV SCH (14:00)
[2023-10-06] MEDS: LACTATED RINGERS 1,000 ML IV SCH (14:07)
[2023-10-06] MEDS: HYDROmorphone 1 MG/ML CARPUJECT IVP PRN (14:50)
[2023-10-06] MEDS: oxyCODONE 5 MG TABLET PO PRN (15:58)
[2023-10-06] MEDS: ACETAMINOPHEN 1,000 MG/100 ML 1,000 MG/100 ML BAG IV SCH (15:58)
[2023-10-06] MEDS: SODIUM CHLORIDE FLUSH 0.9% 10 ML SYRINGE IVP SCH (15:59)
--- NOTE | 2023-10-06 16:54 | PHARMACY PROGRESS NOTE ---
- Best Possible Medication History Admit Date and Time: 10/06/23 1232 Processed by: Pharmacy Medication History completed: Yes Patient Interview: Pt unable to participate Secondary Source(s): Written medication list, Insurance records (Insurance re cords and pharmacy records showed no home meds, pt asleep x2 on pt interview attempts) As the person ultimately responsible for medication therapy, providers are able to order a medication from an existing home medication list in [facility] via the "Reconcile Routine" prior to Confirmation of that medication by software support specialist. Such practice is discouraged except when the physician, in their clinical judgment, deems that a medical need exists for a medication without regard to previous use.
[2023-10-06] MEDS: ONDANSETRON 4 MG/2 ML VIAL IVP PRN (17:54)
[2023-10-07 05:37] LABS: BASOPHILS % (AUTO) 0.3 %; HCT - HEMATOCRIT 32.1 % (37.0-47.0); LYMPHOCYTES # (AUTO) 1.3 10^3/uL (1.5-3.5); LYMPHOCYTES % (AUTO) 12.5 %; MEAN CORPUSCULAR HEMOGLOBIN 27.6 pg (27.0-31.0); MEAN CORPUSCULAR HGB CONC 34.3 g/dL (32.0-36.0); MEAN CORPUSCULAR VOLUME 80.7 fL (81.0-99.0); MEAN PLATELET VOLUME 9.4 fL (7.9-10.8); MONOCYTES # (AUTO) 0.8 10^3/uL (0.0-1.0); MONOCYTES % (AUTO) 7.4 %; NEUTROPHILS # (AUTO) 8.2 10^3/uL (1.5-6.6); NEUTROPHILS % (AUTO) 79.4 %; PLT - PLATELET COUNT 282 10^3/uL (130-450); RED BLOOD COUNT 3.98 10^6/uL (4.20-5.40); RED CELL DISTRIBUTION WIDTH 13.1 % (12.0-15.0); WHITE BLOOD COUNT 10.3 x10^3/uL (4.8-10.8)
[2023-10-07 05:49] LABS: ALBUMIN 3.5 g/dL (3.2-5.5); ALBUMIN/GLOBULIN RATIO 1.4 (1.0-2.2); BILIRUBIN,TOTAL 0.6 mg/dL (0.2-1.0); CALCIUM 8.5 mg/dL (8.5-10.3); CREATININE 0.6 mg/dL (0.6-1.3); POTASSIUM 3.7 mmol/L (3.5-4.5)
[2023-10-07] MEDS ORDERED: HYDROmorphone 0.5 MG/0.5 ML SYRINGE IVP PRN (09:12)
--- NOTE | 2023-10-07 09:54 | PROVIDER PROGRESS NOTE ---
Subjective - General Admit Date: 10/06/23 Procedure Date: 10/06/23 Post Op Days: 1 Procedure Performed: laparoscopic cholecystectomy - Review of Systems Wound/Incisions: positive: Dressing dry and intact Drain Type: PREETI Drain Output Description: serosanguinous Approximate mls Output: 50 - Other Other Information/Narrative: POD1 s/p lap meg. Tolerated some PO last night, this AM was nauseated and dizzy and did not attempt breakfast. Has not ambulated yet. Has been normotensive with HR 80-90s, adequate UOP. Drain output 50cc ssf. Objective - Patient Data Reviewed Vital Signs: Yes Vital Signs: Vital Signs x48h Temp Pulse Resp BP BP Pulse Ox 10/07/23 07:45 37 C 90 18 127/60 94 10/07/23 04:31 36.8 C 89 16 117/69 92 Weight: Weight 10/05/23 10/06/23 10/07/23 23:59 23:59 23:59 Weight (kg) 54.431 kg 62.5 kg Intake & Output: Intake and Output Totals x24h 10/05/23 10/06/23 10/07/23 23:59 23:59 23:59 Intake Total 100 1371.667 975 Output Total 330 570 Balance 100 1041.667 405 - Lab Results Lab Results: 10/07/23 05:24 10/07/23 05:24 Other Lab Results: Lab Results x24hrs 10/07/23 10/07/23 10/06/23 Range/Units 05:24 05:24 13:03 WBC 10.3 (4.8-10.8) x10^3/uL RBC 3.98 L (4.20-5.40) 10^6/uL Hgb 11.0 L (12.0-16.0) g/dL Hct 32.1 L (37.0-47.0) % MCV 80.7 L (81.0-99.0) fL MCH 27.6 (27.0-31.0) pg MCHC 34.3 (32.0-36.0) g/dL RDW 13.1 (12.0-15.0) % Plt Count 282 (130-450) 10^3/uL MPV 9.4 (7.9-10.8) fL Neut # (Auto) 8.2 H (1.5-6.6) 10^3/uL Lymph # (Auto) 1.3 L (1.5-3.5) 10^3/uL Spencer # (Auto) 0.8 (0.0-1.0) 10^3/uL Eos # (Auto) 0.0 (0.0-0.7) 10^3/uL Baso # (Auto) 0.0 (0.0-0.1) 10^3/uL Absolute Nucleated RBC 0.00 x10^3/uL Nucleated RBC % 0.0 /100WBC PT (9.9-12.6) secs INR (0.8-1.2) Sodium 134 L (135-145) mmol/L Potassium 3.7 (3.5-4.5) mmol/L Chloride 102 (101-111) mmol/L Carbon Dioxide 27 (21-32) mmol/L Anion Gap 5.0 L (6-13) BUN 11 (6-20) mg/dL Creatinine 0.6 (0.6-1.3) mg/dL Estimated GFR (MDRD) 101 (>89) Glucose 233 H (74-104) mg/dL Estimat Average Glucose (70-100) mg/dL Hemoglobin A1c % (4.27-6.07) % Calcium 8.5 (8.5-10.3) mg/dL Total Bilirubin 0.6 (0.2-1.0) mg/dL AST 29 (10-42) IU/L ALT 28 (10-60) IU/L Alkaline Phosphatase 61 (42-121) IU/L Total Protein 6.0 L (6.4-8.9) g/dL Albumin 3.5 (3.2-5.5) g/dL Globulin 2.5 (2.1-4.2) g/dL Albumin/Globulin Ratio 1.4 (1.0-2.2) Blood Type B POSITIVE Blood Type Recheck Antibody Screen NEGATIVE 10/06/23 10/06/23 10/06/23 Range/Units 13:03 13:03 13:03 WBC (4.8-10.8) x10^3/uL RBC (4.20-5.40) 10^6/uL Hgb (12.0-16.0) g/dL Hct (37.0-47.0) % MCV (81.0-99.0) fL MCH (27.0-31.0) pg MCHC (32.0-36.0) g/dL RDW (12.0-15.0) % Plt Count (130-450) 10^3/uL MPV (7.9-10.8) fL Neut # (Auto) (1.5-6.6) 10^3/uL Lymph # (Auto) (1.5-3.5) 10^3/uL Spencer # (Auto) (0.0-1.0) 10^3/uL Eos # (Auto) (0.0-0.7) 10^3/uL Baso # (Auto) (0.0-0.1) 10^3/uL Absolute Nucleated RBC x10^3/uL Nucleated RBC % /100WBC PT 12.1 (9.9-12.6) secs INR 1.1 (0.8-1.2) Sodium 132 L (135-145) mmol/L Potassium 3.9 (3.5-4.5) mmol/L Chloride 100 L (101-111) mmol/L Carbon Dioxide 21 (21-32) mmol/L Anion Gap 11.0 (6-13) BUN 11 (6-20) mg/dL Creatinine 0.6 (0.6-1.3) mg/dL Estimated GFR (MDRD) 101 (>89) Glucose 307 H (74-104) mg/dL Estimat Average Glucose 252 H (70-100) mg/dL Hemoglobin A1c % 10.4 H (4.27-6.07) % Calcium 9.0 (8.5-10.3) mg/dL Total Bilirubin 0.7 (0.2-1.0) mg/dL AST 48 H (10-42) IU/L ALT 39 (10-60) IU/L Alkaline Phosphatase 82 (42-121) IU/L Total Protein 7.5 (6.4-8.9) g/dL Albumin 4.3 (3.2-5.5) g/dL Globulin 3.2 (2.1-4.2) g/dL Albumin/Globulin Ratio 1.3 (1.0-2.2) Blood Type Blood Type Recheck Antibody Screen 10/06/23 10/06/23 Range/Units 13:03 05:54 WBC 17.1 H (4.8-10.8) x10^3/uL RBC 4.79 (4.20-5.40) 10^6/uL Hgb 13.0 (12.0-16.0) g/dL Hct 39.8 (37.0-47.0) % MCV 83.1 (81.0-99.0) fL MCH 27.1 (27.0-31.0) pg MCHC 32.7 (32.0-36.0) g/dL RDW 12.9 (12.0-15.0) % Plt Count 345 (130-450) 10^3/uL MPV 9.6 (7.9-10.8) fL Neut # (Auto) 15.3 H (1.5-6.6) 10^3/uL Lymph # (Auto) 0.8 L (1.5-3.5) 10^3/uL Spencer # (Auto) 0.9 (0.0-1.0) 10^3/uL Eos # (Auto) 0.0 (0.0-0.7) 10^3/uL Baso # (Auto) 0.0 (0.0-0.1) 10^3/uL Absolute Nucleated RBC 0.00 x10^3/uL Nucleated RBC % 0.0 /100WBC PT (9.9-12.6) secs INR (0.8-1.2) Sodium (135-145) mmol/L Potassium (3.5-4.5) mmol/L Chloride (101-111) mmol/L Carbon Dioxide (21-32) mmol/L Anion Gap (6-13) BUN (6-20) mg/dL Creatinine (0.6-1.3) mg/dL Estimated GFR (MDRD) (>89) Glucose (74-104) mg/dL Estimat Average Glucose (70-100) mg/dL Hemoglobin A1c % (4.27-6.07) % Calcium (8.5-10.3) mg/dL Total Bilirubin (0.2-1.0) mg/dL AST (10-42) IU/L ALT (10-60) IU/L Alkaline Phosphatase (42-121) IU/L Total Protein (6.4-8.9) g/dL Albumin (3.2-5.5) g/dL Globulin (2.1-4.2) g/dL Albumin/Globulin Ratio (1.0-2.2) Blood Type Blood Type Recheck B POSITIVE Antibody Screen - Current Medications Current Medications: Current Medications Generic Name Dose Route Start Last Admin Trade Name Freq PRN Reason Stop Dose Admin Acetaminophen 1,000 mg in 100 mls @ 400 mls/hr 10/06/23 16:00 10/07/23 05:50 Acetaminophen IV Infused Q8HR ANGELICA Infusion Ondansetron HCl 4 mg 10/06/23 12:32 10/06/23 17:54 Ondansetron 4 Mg/2 Ml Vial IVP 4 mg Q6H PRN Administration Nausea / Vomiting Oxycodone HCl 5 mg 10/06/23 12:32 10/07/23 06:30 Oxycodone 5 Mg Tablet PO 5 mg Q4HR PRN Administration Moderate Pain (Level 4-6) Sodium Chloride 10 ml 10/06/23 17:00 10/07/23 09:09 Sodium Chloride Flush 0.9% 10 Ml Syringe IVP 10 ml 0100,0900,1700 ANGELICA Administration - Physical Exam Wound/Incisions: positive: Drainage (ssf on drain sponge, lap incisions CDI) General Appearance: positive: No acute distress, Alert Eyes Bilateral: positive: Normal inspection, PERRL Respiratory: positive: Chest non-tender, No respiratory distress, Breath sounds nml Cardiovascular: positive: Regular rate & rhythm Abdomen: positive: No distention, Tenderness (appropriate periincisional ttp, no guarding or rebound.) Skin: positive: Color nml, Warm, Dry Extremities: positive: Non-tender, Full ROM, Nml appearance Neurologic/Psychiatric: positive: Oriented x3, Mood/affect nml Impression/Plan - Problem List Problem List: 62yoF POD1 s/p laparoscopic cholecystectomy for acute on chronic cholecystitis with gallbladder hydrops. PREETI left during case to monitor for postoperative bleeding due to oozing during case without directly identified operative site bleeding. Hgb down to 11 from 13, which could be dilutional vs aircraft sales representative of surgical bleeding. Reassuring that the PREETI drain has only 50cc ssf since OR, pain and tenderness appear apporpriate for postop status, and that patient has been HD normal with appropriate UOP. However this AM she was dizzy and nauseated and has not yet ambulated. Thus will continue to observe today: - continue regular diet, stop IVF - ambulate with nurses to further assess dizziness vs resolution - repeat HGB this afternoon (2-3pm) - continue PREETI drain until discharge - based on above observations, will determine fitness for discharge home this afternoon vs need for another overnight observation. BG 200s since ED presentation, without prior diagnosis of diabetes per patient. HA1c yesterday was 10.4, c/w dx of DM. - will place on LDSSI while inpatient - discussed with patient and her daughter need to see PCP to start DM mgmt plan Cortney Schmitt DO FACS
[2023-10-07] MEDS: INSULIN LISPRO 300 UNIT/3 ML PEN SUBQ SCH (11:59)
[2023-10-07 14:40] LABS: BASOPHILS % (AUTO) 0.3 %; EOSINOPHILS % (AUTO) 0.2 %; HGB - HEMOGLOBIN 10.7 g/dL (12.0-16.0); LYMPHOCYTES # (AUTO) 1.2 10^3/uL (1.5-3.5); LYMPHOCYTES % (AUTO) 12.9 %; MEAN CORPUSCULAR HEMOGLOBIN 27.2 pg (27.0-31.0); MEAN CORPUSCULAR HGB CONC 33.4 g/dL (32.0-36.0); MEAN CORPUSCULAR VOLUME 81.2 fL (81.0-99.0); MEAN PLATELET VOLUME 9.4 fL (7.9-10.8); MONOCYTES # (AUTO) 0.6 10^3/uL (0.0-1.0); MONOCYTES % (AUTO) 6.6 %; NEUTROPHILS # (AUTO) 7.6 10^3/uL (1.5-6.6); NEUTROPHILS % (AUTO) 79.8 %; PLT - PLATELET COUNT 282 10^3/uL (130-450); RED BLOOD COUNT 3.94 10^6/uL (4.20-5.40); RED CELL DISTRIBUTION WIDTH 13.2 % (12.0-15.0); WHITE BLOOD COUNT 9.5 x10^3/uL (4.8-10.8)
[2023-10-08] MEDS: SODIUM CHLORIDE FLUSH 0.9% 10 ML SYRINGE IVP PRN (06:16)
--- NOTE | 2023-10-08 10:43 | PROVIDER PROGRESS NOTE ---
Subjective - General Admit Date: 10/06/23 Procedure Date: 10/06/23 Post Op Days: 2 Procedure Performed: laparoscopic cholecystectomy - Review of Systems Wound/Incisions: positive: Healing well, Drainage (ssf on drain sponge, lap incisions CDI) Drain Type: PREETI Drain Output Description: serous Approximate mls Output: 25 - Other Other Information/Narrative: HD normal, nausea has resolved and tolerated breakfast this AM. Hgb stabilized yesterday (11 -> 10.7) and ambulated without dizziniess. Pain controlled. PREETI drain has cleared to serous output, 25cc/24hrs. Objective - Patient Data Reviewed Vital Signs: Yes Vital Signs: Vital Signs x48h Temp Pulse Resp BP Pulse Ox 10/08/23 07:45 36.6 C 83 20 137/78 H 95 10/08/23 05:30 36.5 C 89 16 146/97 H 94 Weight: Weight 10/06/23 10/07/23 10/08/23 23:59 23:59 23:59 Weight (kg) 62.5 kg Intake & Output: Intake and Output Totals x24h 10/06/23 10/07/23 10/08/23 23:59 23:59 23:59 Intake Total 2844.542 8794.667 320 Output Total 330 595 Balance 2566.859 1700.667 320 - Lab Results Lab Results: 10/07/23 14:34 10/07/23 05:24 Other Lab Results: Lab Results x24hrs 10/08/23 10/07/23 10/07/23 Range/Units 07:16 20:44 16:32 WBC (4.8-10.8) x10^3/uL RBC (4.20-5.40) 10^6/uL Hgb (12.0-16.0) g/dL Hct (37.0-47.0) % MCV (81.0-99.0) fL MCH (27.0-31.0) pg MCHC (32.0-36.0) g/dL RDW (12.0-15.0) % Plt Count (130-450) 10^3/uL MPV (7.9-10.8) fL Neut # (Auto) (1.5-6.6) 10^3/uL Lymph # (Auto) (1.5-3.5) 10^3/uL [place] # (Auto) (0.0-1.0) 10^3/uL Eos # (Auto) (0.0-0.7) 10^3/uL Baso # (Auto) (0.0-0.1) 10^3/uL Absolute Nucleated RBC x10^3/uL Nucleated RBC % /100WBC POC Whole Bld Glucose 157 H 238 H 241 H (70 - 100) mg/dL 10/07/23 10/07/23 Range/Units 14:34 11:12 WBC 9.5 (4.8-10.8) x10^3/uL RBC 3.94 L (4.20-5.40) 10^6/uL Hgb 10.7 L (12.0-16.0) g/dL Hct 32.0 L (37.0-47.0) % MCV 81.2 (81.0-99.0) fL MCH 27.2 (27.0-31.0) pg MCHC 33.4 (32.0-36.0) g/dL RDW 13.2 (12.0-15.0) % Plt Count 282 (130-450) 10^3/uL MPV 9.4 (7.9-10.8) fL Neut # (Auto) 7.6 H (1.5-6.6) 10^3/uL Lymph # (Auto) 1.2 L (1.5-3.5) 10^3/uL [place] # (Auto) 0.6 (0.0-1.0) 10^3/uL Eos # (Auto) 0.0 (0.0-0.7) 10^3/uL Baso # (Auto) 0.0 (0.0-0.1) 10^3/uL Absolute Nucleated RBC 0.00 x10^3/uL Nucleated RBC % 0.0 /100WBC POC Whole Bld Glucose 212 H (70 - 100) mg/dL - Current Medications Current Medications: Current Medications Generic Name Dose Route Start Last Admin Trade Name Freq PRN Reason Stop Dose Admin Acetaminophen 1,000 mg in 100 mls @ 400 mls/hr 10/06/23 16:00 10/08/23 06:45 Acetaminophen IV Infused Q8HR ANGELICA Infusion Insulin Human Lispro 1 - 5 unit 10/07/23 12:00 10/08/23 07:58 Insulin Lispro 300 Unit/3 Ml Pen SUBQ 1 unit 0800,1200,1700,2100 REPLACED BY [facility] Administration Protocol Ondansetron HCl 4 mg 10/06/23 12:32 10/06/23 17:54 Ondansetron 4 Mg/2 Ml Vial IVP 4 mg Q6H PRN Administration Nausea / Vomiting Oxycodone HCl 5 mg 10/06/23 12:32 10/08/23 08:09 Oxycodone 5 Mg Tablet PO 5 mg Q4HR PRN Administration Moderate Pain (Level 4-6) Sodium Chloride 10 ml 10/06/23 17:00 10/08/23 08:01 Sodium Chloride Flush 0.9% 10 Ml Syringe IVP 10 ml 0100,0900,1700 ANGELICA Administration Sodium Chloride 10 ml 10/06/23 12:32 10/08/23 06:16 Sodium Chloride Flush 0.9% 10 Ml Syringe IVP 10 ml PRN PRN Administration NEEDED PER PROVIDER ORDERS - Physical Exam Wound/Incisions: positive: Healing well, Dressing dry and intact General Appearance: positive: No acute distress, Alert Respiratory: positive: Chest non-tender, No respiratory distress, Breath sounds nml Cardiovascular: positive: Regular rate & rhythm Abdomen: positive: Tenderness (appropriate incisional ttp, dressing CDI), Other (PREETI drain serous - removed on rounds.) Skin: positive: Color nml, No rash, Warm, Dry Extremities: positive: Non-tender, Full ROM, Nml appearance Neurologic/Psychiatric: positive: Oriented x3, Mood/affect nml Impression/Plan - Problem List Problem List: 62yoF POD2 s/p laparoscopic cholecystectomy for acute on chronic cholecystitis with gallbladder hydrops. PREETI left during case to monitor for postoperative bleeding - removed on rounds this AM as hgb stabilized, vitals stable, and clinically well (pain/nausea/dizziness resolved). Ambulating, tolerating diet, voiding well - ready for discharge home today. BG down to 100s with LD-SSI - no prior diagnosis of diabetes per patient; HA1c 10.4 this admission, c/w dx of DM. - discharge home today - 2 week postop follow up in general surgery clinic - discussed with patient and her daughter need to see PCP to start DM mgmt plan Cortney Schmitt DO, FACS General Surgeon
--- NOTE | 2023-10-08 10:50 | DISCHARGE SUMMARY ---
"Discharge Summary Admit Date: 10/06/23 Discharge Date: 10/08/23 Discharging Provider: Cortney Schmitt DO Code Status: Attempt Resuscitation Condition at Discharge: Good Discharge Disposition: 01 Home, Self Care - DIAGNOSES Admission Diagnoses: intractable biliary colic Discharge Diagnoses with Status of Each Condition: 1. acute on chronic calculous cholecystitis with gallbladder hydrops - resolved 2. Diabetes mellitus - new diagnosis, ongoing - CONSULTS | PROCEDURES Procedures: laparoscopic cholecystectomy (10/06/23) - HOSPITAL COURSE Hospital Course: You were admitted to the hospital with intractable biliary colic (gallbladder pain that was not improving with antibiotics and pain medication). We went to the operating room and did a laparoscopic cholecystectomy (removed the gallbladder surgically through small incisions). Because there was some bleeding during the operation, we placed a PREETI drain during surgery and observed you in the hospital until Post-operative day (POD) 2, to make sure that there was not any ongoing bleeding. During the observation period, your hemoglobin levels stabilized, your vital signs were normal, your nausea resolved such that you c ould eat regular food, and your abdominal pain was controlled with medication at an appropriate level for your post-operative status. All of this was evidence that there was no ongoing bleeding, and so the abdominal drain was removed on POD2. You were also able to walk with the nurses without dizziness and urinate normally, and thus were ready to discharge home from the hospital to where you live with your daughter on POD2. You will have a follow up with the general surgery clinic in 2 weeks. While in the hospital, your blood glucose (sugar) levels were as high as 300. We checked blood work to look for diabetes - the HA1C, which was high at 10.4, consistent with a diagnosis of diabetes which you did not know that you had. We gave you some insulin (low dose sliding scale insulin) while you were in the hospital, which lowered your blood glucose levels to around 150. However, it is very important that you follow up with your primary care provider to discuss the diagnosis and treatment of diabetes. - ALLERGIES Allergies/Adverse Reactions: Allergies Allergy/AdvReac Type Severity Reaction Status Date / Time No Known Drug Allergies Allergy Verified 10/05/23 19:25 - MEDICATIONS Home Medications: Ambulatory Orders Medication Instructions Recorded Confirmed No Known Home Medications 10/05/23 10/05/23 - PHYSICAL EXAM AT DISCHARGE General Appearance: positive: No acute distress Eyes Bilateral: positive: Normal inspection ENT: positive: ENT inspection nml Neck: positive: Nml inspection Respiratory: positive: Chest non-tender, No respiratory distress, Breath sounds nml Cardiovascular: positive: Regular rate & rhythm Peripheral Pulses: positive: 2+ Abdomen: positive: Tenderness (appropriate periincisional tenderness) Back: positive: Nml inspection Skin: positive: Color nml Extremities: positive: Non-tender, Full ROM, Nml appearance Neurologic/Psychiatric: positive: Oriented x3 - LABS Result Diagrams: 10/07/23 14:34 10/07/23 05:24 - SEPSIS Current Stage of Sepsis: Resolved Possible source of Sepsis: GI tract/intra-abdominal Confirmed Source and Organism (if known) of Sepsis: gallbladder - FOLLOW UP Follow Up: General Surgery clinic - 2 weeks Primary care - LAWANDA - TIME SPENT Time Spent in Discharge (Minutes): 30"
[2023-10-08 13:22] VITALS: BP 134/70; O2SAT 98
--- NOTE | 2023-10-13 11:04 | ED Physician Documentation ---
ED Addendum - Addendum Addendum: 10/13/23 11:01 Received sign out from Dr. Zacarias at end of his shift; please see his note for complete H+P. Patient diagnosed with appendicitis and is held overnight in ED awaiting surgery in the morning. No issues overnight on my shift; required occasional low-dose IV dilaudid for pain and given IV zosyn on my shift, as well (second dose). patient is still in ED at end of my shift and thus care of patient turned over to oncoming ED physician
--- NOTE | 2023-10-20 23:17 | ED Physician Documentation ---
ED Addendum - Addendum Addendum: 10/20/23 23:15 On change of shift, the patient was awaiting to go to the OR for cholecystitis. No problems with patient while awaiting. Dr. Schmitt came to department as did Anesth. The patient was grought ot the OR as expected. Dispostion: to SDS, stable Diagnosis: right abd pain acute cholecystitis
== END 2023-10-08 13:58 | disposition home or self-care (01) ==
LOC: ED 19:06 → SDS 10-06 09:14 → ED 10-06 09:15 → SDS 10-06 12:31 → MS2 10-06 12:32 → SDS 10-06 13:36
PROVIDERS: ADMIT Surgery; ATTEND Surgery
PROC: 0FT44ZZ Resection of Gallbladder, Percutaneous Endoscopic Approach (ICD-10-PCS; principal; 2023-10-05)
DX: K80.12 Calculus of gallbladder with acute and chronic cholecystitis without obstruction (principal); K82.1 Hydrops of gallbladder; Z86.11 Personal history of tuberculosis; E11.9 Type 2 diabetes mellitus without complications
CPT/HCPCS: 36415; 47562; 74177; 76705; 80053; 81001; 83036; 83690; 85025; 85610; 86850; 86900; 86901; 87086; 96365; 96366; 96375; 96376; 99283; 99285; A9270; G0378; J0131; J1170; J3490; J7120; Q9967; 81003

== ENCOUNTER 2023-11-12 07:28 | Outpatient (CLI) | payer BC ==
[2023-11-12 12:37] LABS: BASOPHILS # (AUTO) 0.1 10^3/uL (0.0-0.1); BASOPHILS % (AUTO) 0.9 %; EOSINOPHILS # (AUTO) 0.2 10^3/uL (0.0-0.7); HCT - HEMATOCRIT 39.7 % (37.0-47.0); HGB - HEMOGLOBIN 13.1 g/dL (12.0-16.0); LYMPHOCYTES # (AUTO) 1.8 10^3/uL (1.5-3.5); LYMPHOCYTES % (AUTO) 26.4 %; MEAN CORPUSCULAR HEMOGLOBIN 27.2 pg (27.0-31.0); MEAN CORPUSCULAR VOLUME 82.5 fL (81.0-99.0); MEAN PLATELET VOLUME 9.7 fL (7.9-10.8); MONOCYTES # (AUTO) 0.4 10^3/uL (0.0-1.0); MONOCYTES % (AUTO) 6.6 %; NEUTROPHILS # (AUTO) 4.2 10^3/uL (1.5-6.6); PLT - PLATELET COUNT 357 10^3/uL (130-450); RED BLOOD COUNT 4.81 10^6/uL (4.20-5.40); RED CELL DISTRIBUTION WIDTH 13.3 % (12.0-15.0); WHITE BLOOD COUNT 6.7 x10^3/uL (4.8-10.8)
[2023-11-12 13:02] LABS: ESTIMATED AVERAGE GLUCOSE 200 mg/dL (70-100); HEMOGLOBIN A1c% 8.6 % (4.27-6.07)
[2023-11-12 13:08] LABS: ALBUMIN 4.5 g/dL (3.2-5.5); ALBUMIN/GLOBULIN RATIO 1.5 (1.0-2.2); ALKALINE PHOSPHATASE 64 IU/L (42-121); ALT ALANINE AMINOTRANSFERASE 16 IU/L (10-60); AST ASPARTATE AMINOTRANSFERASE 19 IU/L (10-42); BILIRUBIN,TOTAL 0.6 mg/dL (0.2-1.0); BUN - BLOOD UREA NITROGEN 9 mg/dL (6-20); CALCIUM 9.6 mg/dL (8.5-10.3); CARBON DIOXIDE - CO2 28 mmol/L (21-32); CHLORIDE 106 mmol/L (101-111); CHOLESTEROL 141 mg/dL; CREATININE 0.6 mg/dL (0.6-1.3); GFR - MDRD 101 (>89); GLUCOSE 129 mg/dL (74-104); HDL CHOLESTEROL 70 mg/dL; LDL CHOLESTEROL,CALCULATED 40 mg/dL; LDL/HDL RATIO 0.6 (<4.4); POTASSIUM 4.2 mmol/L (3.5-4.5); SODIUM 140 mmol/L (135-145); TOTAL PROTEIN 7.5 g/dL (6.4-8.9); TRIGLYCERIDES 154 mg/dL; VLDL CHOLESTEROL 31 mg/dL
[2023-11-12 13:22] LABS: THYROID STIMULATING HORMONE 2.46 uIU/mL (0.34-5.60)
[2023-11-12 13:34] LABS: MICROALBUM/CREATININE RATIO,UR 16.3 ug/mg (<30.0); MICROALBUMIN,URINE 1.6 mg/dL
== END 2023-11-12 07:29 | disposition home or self-care (01) ==
LOC: LAB.N 07:28
PROVIDERS: ATTEND Family Medicine
DX: E11.65 Type 2 diabetes mellitus with hyperglycemia (principal); E78.5 Hyperlipidemia, unspecified; R03.0 Elevated blood-pressure reading, without diagnosis of hypertension
CPT/HCPCS: 36415; 80053; 80061; 82043; 82570; 83036; 83721; 84443; 85025